=== PATIENT | female | born 1995 | race Caucasian/White ===

== ENCOUNTER 2018-03-24 09:22 | Emergency (ER) | payer MEDICAID ==
--- NOTE | 2018-03-24 10:14 | ED PDOC ---
Arrival/HPI - General Time Seen by Provider: 03/24/18 10:11 Historian: Patient - History of Present Illness Narrative History of Present Illness (Text): 03/24/18 10:11 This 22 yo female Gravid, 26 weeks, with pmh migraines, presents to this ED c/o BARNEY associated with mild photophobia, and nausea since last night. Patient denies fever, sob, cp, abdominal pain, pelvic pain, vaginal bleeding, vaginal discharge, urinary symptoms, diarrhea, dizziness, trauma, or abnormal gait. Time/Duration: Other (see hpi) Context: Home Past Medical History - Provider Review Nursing Documentation Reviewed: Yes Family/Social History - Physician Review Nursing Documentation Reviewed: Yes Family/Social History: Other (noncontributory) Allergies/Home Meds Allergies/Adverse Reactions: Allergies No Known Allergies Allergy (Verified 03/24/18 10:02) Home Medications: Home Meds Medication Instructions Recorded Confirmed Multivit/Folic Acid/I 1 tab PO 03/24/18 [ Plus] Review of Systems - Review of Systems Constitutional: Normal. absent: Fatigue, Weight Change, Fevers, Night Sweats Eyes: Photophobia. absent: Vision Changes, Eye Pain ENT: Normal. absent: Sore Throat, Rhinorrhea Respiratory: Normal. absent: SOB, Cough, Wheezing Cardiovascular: Normal. absent: Chest Pain, Palpitations Gastrointestinal: Nausea. absent: Abdominal Pain, Constipation, Diarrhea, Vomiting, Appetite Changes, Hematochezia, Hematemesis, Anorexia, Food Intolerance Genitourinary Female: Normal. absent: Dysuria, Hematuria, Vaginal Bleeding, Vaginal Discharge Musculoskeletal: Normal, Other (denies neck stiffness). absent: Back Pain, Neck Pain Skin: Normal. absent: Rash Neurological: Headache. absent: Dizziness, Focal Weakness, Gait Changes, Speech Changes, Facial Droop, Disequilibrium, Seizure Endocrine: Normal Hemo/Lymphatic: Normal Psychiatric: Normal Physical Exam Vital Signs Temp Pulse Resp BP Pulse Ox 03/24/18 10:17 98.3 F 103 H 18 127/59 L 99 Temperature: Afebrile Blood Pressure: Normal Pulse: Regular Respiratory Rate: Normal Appearance: Positive for: Well-Appearing, Non-Toxic, Comfortable Pain Distress: None Mental Status: Positive for: Alert and Oriented X 3 - Systems Exam Head: Present: Atraumatic, Normocephalic Pupils: Present: PERRL Extroacular Muscles: Present: EOMI Conjunctiva: Present: Normal Mouth: Present: Moist Mucous Membranes Neck: Present: Normal Range of Motion, Trachea Midline. No: Meningeal Signs, MIDLINE TENDERNESS, Paraspinal Tenderness, Lymphadenopathy Respiratory/Chest: Present: Clear to Auscultation, Good Air Exchange. No: Respiratory Distress, Accessory Muscle Use, Wheezes, Retracting, Rhonchi Cardiovascular: Present: Regular Rate and Rhythm, Normal S1, S2. No: Murmurs Abdomen: Present: Normal Bowel Sounds, Other ((+) Gravid). No: Tenderness, Distention, Peritoneal Signs, Rebound, Guarding Back: Present: Normal Inspection. No: CVA Tenderness Upper Extremity: Present: Normal Inspection, Normal ROM, NORMAL PULSES, Neurovascularly Intact. No: Cyanosis, Edema Lower Extremity: Present: Normal Inspection, NORMAL PULSES, Normal ROM. No: Edema, CALF TENDERNESS Neurological: Present: GCS=15, CN II-XII Intact, Speech Normal Skin: Present: Warm, Dry, Normal Color. No: Rashes Psychiatric: Present: Alert, Oriented x 3, Normal Insight, Normal Concentration Medical Decision Making ED Course and Treatment: 03/24/18 12:55 Re-evaluation. Patient feels better. Discussed results and plan with patient who expresses understanding. All questions answered and there is agreement with the plan to discharge home with instructions. Patient stable for discharge. Return if symptoms persist or worsen. Patient stated BARNEY has improved. She feels well and she wishes to be discharged home. Patient was recommended to f/u [facility] in 1-2 days. Return to ED if symptoms worsen. I told patient this hospital does not have [facility] department. Re-evaluation Time: 13:00 Reassessment Condition: Re-examined, Improved - Lab Interpretations Lab Results: Lab Results 03/24/18 11:50: Urine Color Dark yellow, Urine Appearance Clear, Urine pH 6.0, Ur Specific [place] >= 1.030, Urine Protein 100 H, Urine Glucose (UA) Negative, Urine Ketones >=80, Urine Blood Trace-lysed H, Urine Nitrate Negative, Urine Bilirubin Negative, Urine Urobilinogen 1.0 H, Ur Leukocyte Esterase Trace H, Urine RBC 2 - 5, Urine WBC 5 - 10, Ur Epithelial Cells Many, Amorphous Sediment Few, Urine Bacteria Many, Urine Other Uyeast - Medication Orders Current Medication Orders: Discontinued Medications Cephalexin Monohydrate (Keflex) 500 mg PO STAT STA PRN Reason: Protocol Stop: 03/24/18 12:50 Diphenhydramine HCl (Benadryl) 25 mg IVP STAT STA Stop: 03/24/18 10:18 Last Admin: 03/24/18 11:15 Dose: 25 mg IVP Administration Document 03/24/18 11:15 MR (Rec: 03/24/18 11:15 [id number]) Charges for Administration # of IVP Administrations 1 Sodium Chloride (Sodium Chloride 0.9%) 1,000 mls @ 999 mls/hr IV .Q1H1M STA Stop: 03/24/18 11:16 Last Admin: 03/24/18 11:16 Dose: 999 mls/hr eMAR Start Stop Document 03/24/18 11:16 MR (Rec: 03/24/18 11:16 MR [id number]) Intravenous Solution Start Date 03/24/18 Start Time 11:16 End Date 03/24/18 End time 12:16 Total Infusion Time 60 Metoclopramide HCl (Reglan) 10 mg IVP STAT STA Stop: 03/24/18 10:18 Last Admin: 03/24/18 11:15 Dose: 10 mg IVP Administration Document 03/24/18 11:15 MR (Rec: 03/24/18 11:15 MR [id number]) Charges for Administration # of IVP Administrations 1 Disposition/Present on Arrival - Present on Arrival Any Indicators Present on Arrival: No History of DVT/PE: No History of Uncontrolled Diabetes: No Urinary Catheter: No History of Decub. Ulcer: No - Disposition Have Diagnosis and Disposition been Completed?: Yes Diagnosis: Headache Disposition: HOME/ ROUTINE Disposition Time: 13:00 Patient Plan: Discharge Condition: GOOD Discharge Instructions (ExitCare): Headache, Adult (DC) Additional Instructions: Call private doctor for follow up visit in 1-2 days. Call [facility] for follow up visit in 1-2 days. Take OTC regular strength Tylenol for pain as needed. Return to emergency if symptoms worsen. Prescriptions: Cephalexin [cephalexin] 500 mg PO BID #10 cap Doxylamine Succinate [Sleep Aid] 50 mg PO DAILY PRN #20 tablet PRN Reason: Nausea/Vomiting Pyridoxine HCl (Vitamin B6) [Vitamin B-6] 50 mg PO DAILY PRN #20 capsule PRN Reason: Nausea/Vomiting Referrals: [facility] [Outside] - [facility] [[facility] - Follow up with primary Nick Cerda MD [Staff Provider] - Follow up with primary Forms: WORK NOTE
[2018-03-24] MEDS ORDERED: Sodium Chloride 0.9% 1,000 ML IV STA (10:16)
[2018-03-24] MEDS ORDERED: DiphenhydrAMINE 50 mg/ml Inj IVP STA (10:17)
[2018-03-24 12:06] LABS: URINE APPEARANCE CLEAR (CLEAR); URINE BILIRUBIN NEGATIVE (NEGATIVE); URINE BLOOD TRACE-LYSED (NEGATIVE); URINE COLOR DARK YELLOW (YELLOW); URINE GLUCOSE (UA) NEGATIVE (NEGATIVE); URINE LEUKOCYTE ESTERASE TRACE Leu/uL (NEGATIVE); URINE PROTEIN 100 mg/dL (<30 mg/dL)
[2018-03-24 12:39] LABS: URINE AMORPHOUS SEDIMENT FEW; URINE BACTERIA MANY (NEG); URINE EPITHELIAL CELLS MANY /hpf (0-5)
[2018-03-24 13:05] VITALS: O2SAT 100
[2018-03-24 13:53] VITALS: BP 115/72; PULSE 90; RESP 20; TEMP 98
== END 2018-03-24 13:44 | disposition home or self-care (01) ==
LOC: EDBD 09:22 → MERGE 09:22 → ED 09:22
DX: O26.892 Other specified pregnancy related conditions, second trimester (principal); R51 Headache; Z3A.26 26 weeks gestation of pregnancy
CPT/HCPCS: 81001; 87086; 96361; 96374; 96375; 99285; J1200; J2765; J7030